=== PATIENT | female | born 1985 | race Caucasian/White ===

== ENCOUNTER 2017-02-01 13:13 | Emergency (ER) | payer OTHER ==
[2017-02-01 13:13] VITALS: O2SAT 99
[2017-02-01 13:46] LABS: BASOPHILS % (AUTO) 1 % (0-3); EOSINOPHILS % (AUTO) 1 % (0-9); HEMATOCRIT 40 % (35-47); MEAN CORPUSCULAR HGB CONC 34.2 gm/dl (32.0-36.0); MEAN CORPUSCULAR VOLUME 85 fL (81-99); MONOCYTES % (AUTO) 6.8 % (0-12); NEUTROPHILS % (AUTO) 68.5 % (37-80)
[2017-02-01 14:16] LABS: ALBUMIN 3.3 gm/dl (3.4-5.0); CALCIUM 8.5 mg/dl (8.5-10.1); POTASSIUM 4.1 mMol/L (3.5-5.1)
[2017-02-01] MEDS ORDERED: ACETAMINOPHEN 325 MG PO ONE (14:20)
[2017-02-01] MEDS ORDERED: ACETAMINOPHEN 325 MG ONE (14:24)
[2017-02-01 14:28] VITALS: TEMP 97.3
[2017-02-01 15:16] VITALS: BP 117/75; PULSE 70; RESP 20
[2017-02-01 15:18] LABS: APPEARANCE,URINE Clear; BILIRUBIN,URINE NEGATIVE (NEGATIVE); COLOR,URINE Yellow; GLUCOSE, URINE (UA) NEGATIVE (NEGATIVE); KETONES,URINE NEGATIVE (NEGATIVE); LEUKOCYTE ESTERASE ,URINE 1+ (NEGATIVE); NITRATE,URINE NEGATIVE (NEGATIVE); OCCULT BLOOD,URINE NEGATIVE (NEG-TRACE); PH,URINE 6.5; UROBILINOGEN,URINE 0.2 (0.2-1.0 EU)
[2017-02-01 15:39] LABS: RBC,URINE 0-1 (0-3AV/HPF)
== END 2017-02-01 16:55 | disposition home or self-care (01) ==
LOC: ED 13:13
DX: N30.00 Acute cystitis without hematuria (principal)
CPT/HCPCS: 36415; 80053; 81001; 84703; 85025; 99283

== ENCOUNTER 2018-01-03 21:15 | Emergency (ER) | payer OTHER ==
[2018-01-03 21:22] VITALS: BP 129/86; PULSE 74; RESP 20; TEMP 97.4; O2SAT 98
[2018-01-03 22:05] LABS: BASOPHILS % (AUTO) 0 % (0-3); EOSINOPHILS % (AUTO) 0 % (0-9); HEMATOCRIT 39 % (35-47); HEMOGLOBIN 14.7 gm/dl (12.0-15.5); LYMPHOCYTES % (AUTO) 14.3 % (10-50); MEAN CORPUSCULAR HEMOGLOBIN 30.5 pg (27.0-32.0); MEAN CORPUSCULAR HGB CONC 38.2 gm/dl (32.0-36.0); MONOCYTES % (AUTO) 5.6 % (0-12); NEUTROPHILS % (AUTO) 79.2 % (37-80)
[2018-01-03 22:11] LABS: MEAN CORPUSCULAR VOLUME 80 fL (81-99)
[2018-01-03 22:16] LABS: ALBUMIN 3.6 gm/dl (3.4-5.0); BILIRUBIN,TOTAL 0.4 mg/dl (0.2-1.0); CALCIUM 8.9 mg/dl (8.5-10.1); CARBON DIOXIDE 28.1 mEq/L (21-32); CREATININE 0.95 mg/dl (0.60-1.00); POTASSIUM 4.2 mMol/L (3.5-5.1); TOTAL PROTEIN 7.8 gm/dl (6.4-8.2)
[2018-01-03 22:20] LABS: ANISOCYTOSIS SLIGHT AMT; POIKILOCYTOSIS SLIGHT AMT; SPHEROCYTES PRESENT
[2018-01-03] MEDS ORDERED: LIDOCAINE HCL 2% (VISCOUS) 20 ML SOL MT ONE (22:49)
[2018-01-03] MEDS ORDERED: ALUMINUM/MAGNESIUM 30 ML SUS PO ONE (22:50)
[2018-01-03] MEDS ORDERED: LIDOCAINE HCL 2% (VISCOUS) 20 ML SOL ONE (22:53)
[2018-01-03] MEDS ORDERED: ALUMINUM/MAGNESIUM 30 ML SUS ONE (22:53)
== END 2018-01-03 23:39 | disposition home or self-care (01) ==
LOC: ED 21:15
DX: K29.00 Acute gastritis without bleeding (principal)
CPT/HCPCS: 36415; 74019; 80053; 85025; 99282; 99283; A9270-GY